=== PATIENT | male | born 1960 | race Caucasian/White ===

== ENCOUNTER 2019-12-05 07:00 | Outpatient (RCR) | payer OTHER, SELFPAY ==
--- NOTE | 2019-10-07 16:46 | PCCPR ---
Absent since 09/30 Called patient to check, left a voicemail.
--- NOTE | 2019-11-27 07:51 | PCCPR ---
Extended dc date Spoke with Jose he has been absent a few times for illness. He did want to extend his dc date until mid December.
--- NOTE | 2019-12-17 10:48 | PCCPR ---
Reregistered under new account number. See [id number] for documentation related to this visit.
== END 2019-12-05 23:59 | disposition home or self-care (01) ==
LOC: ANHCPREHAB 07:00
PROVIDERS: Visit Provider Nurse Practitioner Adult Health
DX: Z51.89 Encounter for other specified aftercare (principal); Z95.5 Presence of coronary angioplasty implant and graft; I25.2 Old myocardial infarction
CPT/HCPCS: 93798

== ENCOUNTER 2019-12-25 07:00 | Outpatient (RCR) | payer OTHER, SELFPAY | END 2019-12-25 08:42 | disposition home or self-care (01) | LOC: ANHCPREHAB 07:00 | PROVIDERS: Visit Provider Nurse Practitioner Adult Health | DX: Z51.89 Encounter for other specified aftercare (principal); Z95.5 Presence of coronary angioplasty implant and graft; I25.2 Old myocardial infarction | CPT/HCPCS: 93798 ==

== ENCOUNTER 2021-07-23 01:25 | Day surgery (SDC) | payer OTHER, SELFPAY ==
[2021-07-14 14:02] VITALS: BMI 31.1
--- NOTE | 2021-07-22 11:36 | PM.HPGS ---
History of Present Illness History of Present Illness Consent: Risks, benefits, and alternatives have been discussed and questions answered. Patient agrees to proceed with procedure. Chief complaint: hx of colon polyps Narrative: Jaren Lane is a 61 year old male here for colon cancer screening. He is at high risk due to previous polyps Review of Systems Review of Systems: All systems reviewed & are unremarkable except as noted in HPI and below PMFSH Past Medical History Medical History CAD (coronary artery disease) HTN (hypertension) Hyperlipidemia Obesity Surgical History Surgical History History of coronary artery stent placement Social History Social History Smoking status: Former smoker Tobacco type: cigarettes Alcohol intake: current Drinks per week: 2 Alcohol use details: BEERS Substance use: never Substance use type: does not use Living arrangements: with family Spiritual care concerns: No Meds Home Medications and Allergies Home Medications Medication Instructions Recorded Confirmed Type aspirin [Adult Low Dose Aspirin] 81 mg PO DAILY 09/16/19 07/14/21 History atorvastatin 80 mg PO DAILY 09/16/19 07/14/21 History dexmethylphenidate 10 mg PO DAILY 09/16/19 07/14/21 History escitalopram oxalate 40 mg PO DAILY 09/16/19 07/14/21 History lisinopril 2.5 mg PO DAILY 09/16/19 07/14/21 History metoprolol tartrate 12.5 mg PO BID 09/16/19 07/14/21 History vs-hu-VV-vit M-uopmd-rak-coQ10 1 cap PO DAILY 09/16/19 07/14/21 History [Daily Multivitamin] nitroglycerin [Nitrostat] 0.4 mg SUBLINGUAL Q5M PRN 09/16/19 07/14/21 History prasugrel [Effient] 10 mg PO DAILY 09/16/19 07/23/21 History cholecalciferol (vitamin D3) 50 mcg PO DAILY 07/14/21 07/14/21 History [Vitamin D3] ezetimibe 10 mg PO DAILY 07/14/21 07/14/21 History Allergies Allergy/AdvReac Type Severity Reaction Status Date / Time No Known Allergies Allergy Mild Verified 07/23/21 07:36 Exam Const: General: alert Orientation/consciousness: patient oriented x3 Resp: Auscultation: clear to auscultation bilaterally Cardio: Rhythm: regular rhythm GI: GI Palp: Yes Soft to palpation and No Tenderness to palpation present (GI) Neuro: General: patient oriented x3 Assessment and Plan Assessment and plan (1) Colon cancer screening: Code(s): Z12.11 - Encounter for screening for malignant neoplasm of colon Status: Acute Assessment and Plan: Colonoscopy with possible biopsy or polypectomy or cautery or injection of substances.
[2021-07-23 07:39] VITALS: BP 121/68; PULSE 58; RESP 18; TEMP 36.6; O2SAT 98; BMI 30.5
[2021-07-23] MEDS: LACTATED RINGERS 1,000 ML 150 ML IV CONT (07:46)
--- NOTE | 2021-07-23 07:52 | WPDANESEPPF ---
Anes - Initial Pre Proc Eval Procedure: Operation Date: 07/23/21 08:30 Proposed Procedures p Screening Colonoscopy - Negro Mayorga MD Date/Time: 07/23/21 07:52 Surgeon: Negro Mayorga MD Pre Op Diagnosis: hx of colon polyps Patient Data Age: 61 Gender: M Height: 1.7 m Weight: 88.5 kg Last Vital Signs Temp 36.6 C 07/23/21 07:39 Pulse 58 L 07/23/21 07:39 Resp 18 07/23/21 07:39 BP 121/68 07/23/21 07:39 Pulse Ox 98 07/23/21 07:39 Allergies Allergy/AdvReac Type Severity Reaction Status Date / Time No Known Allergies Allergy Mild Verified 07/23/21 07:36 Home Medications Medication Instructions Recorded Confirmed Type aspirin [Adult Low Dose Aspirin] 81 mg PO DAILY 09/16/19 07/14/21 History atorvastatin 80 mg PO DAILY 09/16/19 07/14/21 History dexmethylphenidate 10 mg PO DAILY 09/16/19 07/14/21 History escitalopram oxalate 40 mg PO DAILY 09/16/19 07/14/21 History lisinopril 2.5 mg PO DAILY 09/16/19 07/14/21 History metoprolol tartrate 12.5 mg PO BID 09/16/19 07/14/21 History wc-uf-KB-vit L-gjcnq-dfc-coQ10 1 cap PO DAILY 09/16/19 07/14/21 History [Daily Multivitamin] nitroglycerin [Nitrostat] 0.4 mg SUBLINGUAL Q5M PRN 09/16/19 07/14/21 History prasugrel [Effient] 10 mg PO DAILY 09/16/19 07/23/21 History cholecalciferol (vitamin D3) 50 mcg PO DAILY 07/14/21 07/14/21 History [Vitamin D3] ezetimibe 10 mg PO DAILY 07/14/21 07/14/21 History Patient hx anesthesia problems: none Family hx anesthesia problems: none PMFSH Past Medical History Medical History (Updated 07/23/21 @ 07:53 by Jules Perez MD) CAD (coronary artery disease) HTN (hypertension) Hyperlipidemia Obesity Surgical History Surgical History (Updated 07/23/21 @ 07:52 by Jules Perez MD) History of coronary artery stent placement Social History Social History Smoking status: Former smoker Tobacco type: cigarettes Alcohol intake: current Drinks per week: 2 Alcohol use details: BEERS Substance use: never Substance use type: does not use Living arrangements: with family Spiritual care concerns: No Anes - Eval Final PreProcedure Day of Procedure 07/23/21 07:52 Patient weight: obese Heart: regular rate and rhythm Lungs: clear to auscultation Airway: Mallampati scale class II Neurological: alert and oriented Last oral intake: >/= 8 hours ASA classification: III Emergent: no Anesthetic plan: proceed Anesthesia type and monitoring: general GIVS and standard monitoring Informed Consent: The patient's anesthetic plan and its attendant risks and benefits were discussed with the patient/family/POA. Questions were solicited and answers provided to the satisfaction of the patient/family/POA.
[2021-07-23 08:57] VITALS: BP 121/68; PULSE 54; RESP 18; O2SAT 98
[2021-07-23 09:07] VITALS: BP 133/80; PULSE 52; RESP 18; O2SAT 98
[2021-07-23 09:17] VITALS: BP 130/80; PULSE 52; RESP 18; O2SAT 98
== END 2021-07-23 09:27 | disposition home or self-care (01) ==
PROVIDERS: PCP Family Medicine; Visit Provider Internal Medicine Gastroenterology
PROC: 0DJD8ZZ Inspection of Lower Intestinal Tract, Via Natural or Artificial Opening Endoscopic (ICD-10-PCS; CPT 45378; principal; 2021-07-23 08:30)
DX: Z12.11 Encounter for screening for malignant neoplasm of colon (principal); D12.3 Benign neoplasm of transverse colon; K57.30 Diverticulosis of large intestine without perforation or abscess without bleeding; I25.10 Atherosclerotic heart disease of native coronary artery without angina pectoris; I10 Essential (primary) hypertension; E78.5 Hyperlipidemia, unspecified; E66.9 Obesity, unspecified; Z95.5 Presence of coronary angioplasty implant and graft
CPT/HCPCS: 45380; 88305; J2001; J2704; J7120

== ENCOUNTER 2025-01-28 01:15 | Day surgery (SDC) | payer MEDICARE, OTHER, SELFPAY ==
[2025-01-23 08:34] VITALS: BMI 33.1
--- OUTSIDE RECORDS SUMMARY | 2025-01-28 01:26 | XMS_ITS ---
Author Organization [facility] [employer] Address [address] [place] [address] Care Team Providers Care Duct Layer Helper Name Role Phone Salvador Oro Unavailable [phone] REASON FOR VISIT Lexapro Medications Medication SIG (Take, Route, Frequency, Duration) Notes Start Date End Date Status Escitalopram Oxalate 20 MG 2 tablet Oral once a day for 90 days Active Social History Sex Assigned At : Social History Observation Description Sex Assigned At Male Encounters Encounter Location Date Provider Diagnosis [facility] [employer] [facility] [address] [place] [address] 12/17/2024 Salvador Oro Major depressive disorder, recurrent severe without psychotic features F33.2 Assessments Encounter Date Diagnosis (ICD Code) Assessment Notes Treatment Notes Treatment Clinical Notes Section Notes 12/17/2024 Major depressive disorder, recurrent severe without psychotic features (ICD-10 - F33.2) Plan Of Treatment Medication Medication Name Sig Start Date Stop Date Notes Escitalopram Oxalate 20 MG 2 tablet Oral once a day for 90 days Next Appt Details Provider Name:Salvador Oro , 06/11/2025 04:00:00 PM, [address], [address], [place], [address], Progress Notes * ETHAN SELLERS EDOB: [birth year] (64 yo M)Acc No.[id number]:12/17/2024 Patient: ETHAN MATTHEWS :1960 A ge:64 Y S ex:Male Address:[address] [place], [place] [address] [place], [address] * Refills Refill Escitalopram Oxalate Tablet, 20 MG, Oral, 180 Tablet, 2 tablet, once a day, 90 days, Refills=0 * true * Date: Generated for Mike hernandez/Tunde/Meagan on: 0 01/28/2025 01:26 AM CDT
--- OUTSIDE RECORDS SUMMARY | 2025-01-28 01:26 | XMS_ITS | Clinical Summary ---
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 Gender Identity Not on file Sexual Orientation Not on file Plan of Treatment Health Maintenance Due Date Last Done Comments Pre-Diabetes and Diabetes Screening 1960 FIT-DNA Q 3 years 02/19/2004 FIT/FOBT Q 1 year 02/19/2004 Flex Sig/CT Colonography Q 5 years 02/19/2004 PNEUMOCOCCAL VACCINE 50+ YEA RS (1 of 1 - PCV) 2009 RSV VACCINE (60+ or ) (1 - Risk 60-74 years 1-dose series) 2019 INFLUENZA VACCINE (#1) 2024 , 08/22/2022, 09/21/2021, Additional history exists COVID-19 Vaccine ( - 2023-2 5 season) 2024 07/20/2022, 02/20/2022, 09/05/2021, Additional history exists DTAP/TDAP/TD VACCINES (2 - T d or Tdap) 04/25/2028 04/25/2018 COLORECTAL SCREENING 07/23/2031 07/23/2021 Colorectal Cancer Screening 07/23/2031 ZOSTER VACCINE Completed 10/16/2021, 05/14/2021
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
--- OUTSIDE RECORDS SUMMARY | 2025-01-28 01:27 | XMS_ITS | Clinical Summary ---
Author Organization [facility] Address [address] [place] [address] Care Team Providers Care Export Freight Specialist Name Role Phone Jenniffer Canales NP Primary Care Provider + Allergies No known active allergies Medications escitalopram (LEXAPRO) 20 mg tablet TK 2 TS PO QD 0 10/31/20 18 Active multivit-white shoe examiner als/ferrous fum (MULTI VITAMIN ORAL) Take by [...] with Plastic Surgery in 1 weeks at [facility], [address]- call [phone] to schedule Acute traumatic pain 03/12/2024 Assessment [...] daily H/O non-ST elevation myocardial infarction (NSTE MD) 03/23/2021 Coronary artery disease invo lving [place] coronary artery of [place] heart without angina pectoris 12/17/2019 HTN (hypertension), [...] 03/23/2021 09/27/2021 H/O heart artery stent 12/17/201912/26 Encounters Date Type Department Care Team Description 01/24/2025 Results Follow-Up [facility] Cardiology [address] [place] [address] [address] [place] [phone] Maame Dial MD 01/23/2025 8:15 AM CDT Ancillary Procedure [facility] Cardiology [address] [place] [address] [place] [phone] Coronary artery disease involving [place] coronary artery of [place] heart without angina pectoris 12/30/2024 10:15 AM [employer]APER AND PRESSER Office Visit [facility] Cardiology [address] [place] [address] [place] [phone] Maame Dial MD Coronary artery disease involving [place] coronary artery of [place] heart without angina pectoris (Primary Dx); HTN (hypertension), benign; Mixed hyperlipidemia; ALYSSA on CPAP 12/30/2024 Orders Only [facility] Cardiology [address] [place] [address] [place] [phone] ProviderOneyda MD 12/10/2024 8:45 AM [employer]APER AND PRESSER Office Visit [facility] Sleep Medicine at [address] [place] [phone] Juliana Lilly MD Obstructive sleep apnea (Primary Dx); Hypersomnia; Insomnia, unspecified type; Obesity, unspecified class, unspecified obesity type, unspecified whether serious comorbidity present from Last 3 Months Immunizations Immunization Administration Dates Next Due Influenza, Quadrivalent, Spl it, Preservative Free, Intramuscular 08/25/2019 Influenza, Trivalent, High D ose, Split, Preservative Free, Intramuscular 08/22/2022 Influenza, Trivalent, IM (MDV) 09/22/2023,2020 Pfizer SARS-CoV-2 Monovalent Vaccination (12+ Yrs) PURPLE 02/20/2022,09/05/2021,01/29/2021,01/08 Tdap 04/25/2018 ZOSTER Recombinant 10/16/2021,05/14/2021 Surgical History Surgery Date Site/Laterality Comments ANKLE FRACTURE SURGERY KNEE SURGERY Right KNEE ARTHROSCOPY CARDIAC CATHETERIZATION CORONARY ANGIOPLASTY FRACTURE SURGERY 1999, 2009? Medical History Medical History Date Comments Anxiety Hypercholesteremia Hypertension Seizures (HCC) Sleep apnea Coronary artery disease NSTEMI (non-ST elevated myocardial infarction) ( HCC) 07/29/2019 Depression Diverticulitis Hepatitis 1969 Heart disease 2019 Family History Medical History Relation Name Comments Heart disease Father Julio Sellers Depression Mother Love Sellers No Known Problems Sister Relation Name Status Comments Father Julio Sellers (Age 93) Mother Love Sellers (Age 91) Sister Alive Social History Tobacco Use Types Packs/Day Years [...] on file Legal Sex Male 1:12 PM [employer]ER AND PR[employer]ER Gender Identity Not on file Sexual Orientation Not on file Occupation Industry Job Start Date Job End Date working Not on file Not on file Not on file Obstetrics History Last Filed Vital Signs Vital Sign Reading Time Taken Comments Blood Pressure 104/64 12/30/2024 10:11 AM [employer]ER AND PR[employer]ER Pulse 69 12/30/2024 10:11 AM [employer]APER AND PRESSER Temperature 36.8 C (98.3 F) 06/17/2024 12:26 PM CDT Respiratory Rate 18 06/17/2024 12:26 PM CDT Oxygen Saturation 96% 12/30/2024 10:11 AM SHAPER AND PRESSER Inhaled Oxygen Concentration - - Weight 94.8 kg (209 lb) 12/30/2024 10:11 AM SHAPER AND PRESSER Height 170.2 cm (5' 7 ) 12/30/2024 10:11 AM SHAPER AND PRESSER Body Mass Index 32.73 12/30/2024 10:11 AM SHAPER AND PRESSER Plan of Treatment Health Maintenance Due Date Last Done Comments Colon Cancer Screening-Colonoscopy 1960 Depression Screening 1960 Hepatitis C Screening 1960 Prostate Cancer Screening-PSA 1959 Hepatitis B Screening 1977 Pneumococcal vaccine 65+ (1 of 1 - PCV) 2009 Well Visit 65+ 02/19/2024 Covid-19 Vaccine (5 - 2023-2 5 season) 2024 02/20/2022, 09/05/2021, 01/29/2021, Additional history exists Influenza Vaccine (#1) 2024 3, 08/22/2022, 09/21/2021, Additional history exists Fall Risk Assessment 03/13/2025 03/13/2024 DTaP/Tdap/Td Vaccine (2 - Td or Tdap) 04/25/2028 04/25/2018 Zoster Vaccine Completed 10/16/2021, 05/14/2021 Abdominal Aortic Aneurysm (A AA) Screen Completed 03/12/2024 Procedures Procedure Name Priority Date/Time Associated Diagnosis Comments NM MPI SPECT (REST AND/OR STRESS) MULTIPLE STUDIES Schedule Routine, Read Routine (OP Routine) 01/23/2025 9:41 AM CDT Coronary artery disease involving [place] coronary artery of [place] heart without angina pectoris CT ABDOMEN PELVIS W CONTRAST ED 03/12/2024 6:53 AM CDT from Last 3 Months or Most Recently Relevant to Health Maintenance Results * NM MPI SPECT (Rest and/or Stress) Multiple Studies (01/23/2025 9:41 AM CDT) Anatomical Region Laterality Modality Body N/A Nuclear Medicine 01/23/2025 6:44 AM CDT Narrative 01/23/2025 6:32 PM CDT [facility] [address] [facility] [address], [place] [address] [address] [facility] [address], [place] [address] P:[phone] P:[phone] MPI Imaging Report Patient Name: JAREN SELLERS E : 1960 Study Date: 01/23/2025 6:44:45 AM Gender: M [facility]: [facility] Location[facility] Provider: AMAME DIAL Height(Cm): 170.2 BSA: Weight(Kg): 94.8 BMI: [...] Smoker, and I25.10 Atherosclerotic heart disease of [place] coronary artery without angina pectoris. FINDINGS: Procedural [...] Procedure Note Maame Dial MD - 01/23/2025 [facility] [address] [facility] [address], [place] [address] [address] [facility] [address], [place] [address] P:[phone] P:[phone] MPI Imaging Report Patient Name: JAREN SELLERS E : 1960 Study Date: 01/23/2025 6:44:45 AM Gender: M Tech: [facility] Location: [facility] Provider: MAAME DIAL Height(Cm): 170.2 BSA: [...] Former Smoker, and I25.10Atherosclerotic heart disease of [place] coronary artery without angina pectoris. FINDINGS: Procedural [...] consolidation, pleural effusion, or pneumothorax within the kkfue-cj-eewy. The imaged heart is normal in size without pericardial effusion within the arhbf-gh-loze. Multivessel coronary calcifications are noted. There is [...] fifth ribs are incompletely included in the uzknb-lb-zcuq on this study. Procedure Note Cole Baker [...] consolidation, pleural effusion, or pneumothorax within the vpzzc-um-vony. The imaged heart is normal in size without pericardial effusion within the mrpoa-rr-obzc. Multivessel coronary calcifications are noted. There is [...] fifth ribs are incompletely included in the ttkrz-rx-uixl on this study. IMPRESSION: 1. Redemonstrated rib [...] by: Cole Baker M.D. Nain Jeong MD IMG CT PROCEDURES Final R esult from Last 3 Months or Most Recently Relevant to Health Maintenance Insurance [facility] [id number] MEDICARE [facility] Address: [address] [address] [place] [address] [facility] [id number] [facility] [id number] MEDICARE [facility] Address: [address] [address] [place] [address] Advance Directives For more information, please contact: [phone] * Full Code (Latest Code Status on File) Date Activated Date Inactivated Comments 03/12/2024 2:21 PM 03/13/2024 5:59 PM Care Teams Export Freight Specialist Relationship Specialty Start Date End Date Jenniffer Canales NP [address] [place] [address] PCP - General Cardiovascular Disease 12/10/24
--- OUTSIDE RECORDS SUMMARY | 2025-01-28 01:27 | XMS_ITS ---
Author Organization [facility] Address [address] [facility] [address] [place] [address] Care Team Providers Care Tax Technician Name Role Phone Salvador Serna Unavailable [phone] Results Component Value Reference Range Notes UDT Reviewed date:01/15/2025 11:03:57 AM Interpretation: Performing Lab: Notes/Report: THC N 0 - 50 ng/ml Cocaine N 0 - 300 ng/ml Amphetamine N 0 - 1000 ng/ml Buprenorphine (BUP) N 0 - 10 ng/ml Secobarbital (Bar) N 0 - 300 ng/ml Oxazepam (BZO) N 0 - 300 ng/ml 7-kgkjqlgtse-8,9-grfujeql-5,3-diphenylpyrrolidine (SHALINI P) N 0 - 300 ng/ml Methamphetamine (MET) N 0 - 1000 ng/ml Methylenedioxymethamphetamine (MDMA) N 0 - 500 ng/ml Morphine (MOP 300/[id number]) N 0 - 300 ng/ml Methadone (MTD) N 0 - 300 ng/ml Phencyclidine (PCP) N 0 - 25 ng/ml Nortriptyline (TCA) N 0 - 1000 ng/ml Oxycodone N 0 - 300 ng/ml x N 0 - 300 ng/ml REASON FOR VISIT follow-up, Depression screening negative, UDT Visit, UDT done Medications Medication SIG (Take, Route, Frequency, Duration) Notes Start Date End Date Status Escitalopram Oxalate 20 MG TAKE 2 TABLETS BY MOUTH DAILY for 90 Active Repatha SureClick 140 MG/ML Subcutaneous for 28 Days Active Atorvastatin Calcium 80 MG Oral for 90 Days Active Escitalopram Oxalate 20 MG 1.5 tablets Oral once a day for 90 days [ePrescription ] - [facility] #[id number] 25 Active Dexmethylphenidate HCl 10 MG TAKE 1 TABLET BY MOUTH EVERY MORNING AND 1 TABLET EVERY AFTERNOON PRN Oral see sign for 30 days 01/15/2025 Active Methocarbamol 500 MG Oral for 15 Days Not-Taking Social History Sex Assigned At : Social History Observation Description Sex Assigned At Male Vital Signs Blood pressure systolic 114 mm Hg 01/16/20 25 Blood pressure diastolic 73 mm Hg 025 Heart Rate 71 /min 01/15/2025 Height 67.99 in 01/15/2025 Weight 215 lbs 01/15/2025 BMI 32.7 kg/m2 01/15/2025 Height-cm 172.69 cm 01/15/2025 Weight-kg 97.52 kg 01/15/2025 Encounters Encounter Location Date Provider Diagnosis [facility] [address] [address] 01/15/2025 Salvador Serna Attention-deficit hyperactivity disorder, unspecified type F90.9 ; Major depressive disorder, recurrent severe without psychotic features F33.2 ; Generalized anxiety disorder F41.1 and Obsessive-compulsive disorder, unspecified F42.9 Assessments Encounter Date Diagnosis (ICD Code) Assessment Notes Treatment Notes Treatment Clinical Notes Section Notes 01/15/2025 Attention-defici t hyperactivity disorder, unspecified type (ICD-10 - F90.9) Electronic Prior Authorization was requested for Dexmethylphenidate HCl 10 MG Tablet. Provider can order medication once approval received. 01/15/2025 Major depressive disorder, recurrent severe without psychotic features (ICD-10 - F33.2) 01/15/2025 Generalized anxiety disorder (ICD-10 - F41.1) 01/15/2025 Obsessive-compul sive disorder, unspecified (ICD-10 - F42.9) 01/15/2025 Other Anxiety and Obsessive-Compu lsive Disorder (OCD) - Assessment: Patient reported increased rumination and difficulty getting out of bed after reducing Lexapro to 20 mg. Patient has since increased the dose back to 40 mg, which seems to be more effective in managing symptoms. Patient expressed uncertainty about the optimal dosage but feels stable at 40 mg. - Plan: - Continue Lexapro 40 mg daily. - Monitor for any changes in anxiety or OCD symptoms and adjust the medication as needed. Attention Deficit Hyperactivity Disorder (ADHD) - Assessment: Patient reports stable ADHD symptoms and is currently on Focalin. - Plan: - Continue Focalin as prescribed. - Monitor for any changes in ADHD symptoms and adjust the medication as needed. Writing Project-Related Anxiety - Assessment: Patient is working with a therapist to address anxiety related to a writing project and procrastination . Patient experiences difficulty starting writing tasks but usually completes them by the deadline. - Plan: - Encourage patient to continue therapy sessions and implement coping strategies discussed with the therapist. Prescription Refills and Follow-up - Assessment: Patient has a 90-day supply of Lexapro and a recent refill of Focalin. Patient inquired about the procedure and fees for Focalin prescription refills. - Plan: - Send a prescription for Focalin today. - Schedule a follow-up appointment in 5 months to assess patient's progress and medication needs. - Instruct patient to contact the clinic for a refill if they run out of medication before the next appointment. General Health and Well-being - Assessment: Patient discussed the impact of the ongoing winter season on their mood. - Plan: - Encourage patient to engage in self-care activities and maintain a healthy lifestyle to support overall well-being. Plan Of Treatment Medication Medication Name Sig Start Date Stop Date Notes Escitalopram Oxalate 20 MG 1.5 tablets O ral once a day for 90 days [ePrescription] - [facility] #[id number]/ Dexmethylphenidate HCl 10 MG TAKE 1 TABL ET BY MOUTH EVERY MORNING AND 1 TABLET EVERY AFTERNOON PRN Oral see sign for 30 days 01/15/2025 Treatment Notes Assessment Notes Attention-deficit hyperactiv ity disorder, unspecified type Electronic Prior Authorization was reque sted for Dexmethylphenidate HCl 10 MG Tablet. Provider can order medication once approval received. Next Appt Details Follow Up: 5 month, Reason: Provider Name:Salvador Serna , 06/11/2025 04:00:00 PM, [address], [address], [place], [address], Progress Notes * ETHAN SELLERS EDOB: [birth year] (64 yo M)Acc No.[id number]:01/15/2025 Patient: ETHAN MATTHEWS Provider: Jony SERNA MD :1960 A ge:64 Y S ex:Male Date:01/15/2025 Address:[address] [place], [place] [id number] Subjective: * Chief Complaints: * F ollow-upDepression screening negativeUDT VisitUDT done * HPI: D epression Screening: The note is transcribed using speech recognition software. It is a reflection of a visit with the patient. It might have some inaccuracy, including medication names and transcribing errors, though efforts have been made to correct them. Chief Complaint: Medication management for anxiety, OCD, and ADHD Patient Background: The patient has a history of anxiety, OCD (Obsessive-Compulsive Disorder), and ADD/ADHD (Attention Deficit Disorder/Attention Deficit Hyperactivity Disorder). He is currently engaged in a writing project with a deadline in February. Medication History: The patient was previously on 40mg of Lexapro, which he had reduced to 20mg. This reduction led to a recurrence of symptoms, including rumination and difficulty getting out of bed. He has since increased the dosage back to 40mg, resulting in improved symptom management. The patient is also prescribed Focalin for ADHD management, though the dosage is not specified. Current Symptoms: The patient reports feeling more stable on the higher dose of Lexapro. He no longer experiences severe anxieties as before. However, he still struggles with initiating writing tasks for his current project, often procrastinating until deadlines approach. The patient also mentioned experiencing stress due to political factors. ADHD Management: The patient states his ADHD is relatively stable. He inquired about the process for renewing his Focalin prescription and sought clarification on associated fees. Therapy: The patient reports having a therapist who is helping him develop strategies to address his procrastination behavior. Review of Systems (Psychiatric): - Mood: More stable on higher dose of Lexapro - Thoughts: Experiences rumination when medication dose is lowered - Energy: Reports difficulty getting out of bed when medication dose is lowered - Concentration: Struggles with initiating writing tasks, tendency to procrastinate Social History: The patient is currently working on a writing project with a deadline in February. Current Medications: - Lexapro 40mg - Focalin (dosage not specified) Additional Details: - The patient experienced a recurrence of symptoms when Lexapro dosage was reduced - He reports feeling more stable on the higher dose of Lexapro - The patient mentions stress related to political factors - He has inquired about the process for renewing his Focalin prescription. MELINDA-7 (2018 Edition) F eeling nervous, anxious, or on edge S ever N ot being able to stop or control worrying?Not at all W orrying too much about different things S ever T rouble relaxing S ever B eing so restless that it is hard to sit still N ot at all B ecoming easily annoyed or irritable N ot at all F eeling afraid as if something awful might happen N ot at all T otal MELINDA-7 Score 3 I f you checked any problems, how difficult have they made it for you to do your work, take care of things at home, or get along with other people? S omewhat difficult I nterpretation of Total ( 0 to 4) No Anxiety D epression screening: PHQ-9 L ittle interest or pleasure in doing things?Not at all F eeling down, depressed, or hopeless N ot at all T rouble falling or staying asleep, or sleeping too much S ever F eeling tired or having little energy N ot at all P oor appetite or overeating N ot at all F eeling bad about yourself or that you are a failure, or have let yourself or your family down N ot at all T rouble concentrating on things, such as reading the newspaper or watching television N ot at all M oving or speaking so slowly that other people could have noticed; or the opposite, being so fidgety or restless that you have been moving around a lot more than usual N ot at all T houghts that you would be better off or of hurting yourself in some way N ot at all T otal Score 1 I nterpretation M inimal Depression Intervention D epression Screening Findings N egative S uicide Risk Assessment Performed 0 01/15/2025 H istory of Presenting Problem: Pt was seen today and Urine drug screen was done. * ROS: P erformance Met: N ormal blood pressure reading documented, follow-up not required ( G8783). * Medical History: * Surgical History: * Hospitalization/Major Diagno stic Procedure: * Social History: M igrated Social History: M igrated Social History: Alcohol Intake: Occasional 10/18/2018,Tobacco Years: Former smoker 07/29/2022,Smoking Status: 0 01/01/2024. * Medications: T akingAtorvastatin Calcium 80 MG Tablet Oral Repatha SureClick 140 MG/ML Solution Auto-injector Subcutaneous Escitalopram Oxalate 20 MG Tablet TAKE 2 TABLETS BY MOUTH DAILY Dexmethylphenidate HCl 10 MG Tablet TAKE 1 TABLET BY MOUTH EVERY MORNING AND 1 TABLET EVERY AFTERNOON PRN Oral see sign , stop date 02/05/2025Taking Atorvastatin Calcium 80 MG Tablet Oral Taking Repatha SureClick 140 MG/ML Solution Auto- injector Subcutaneous Taking Escitalopram Oxalate 20 MG Tablet TAKE 2 TABLETS BY MOUTH DAILY Taking Dexmethylphenidate HCl 10 MG Tablet TAKE 1 TABLET BY MOUTH EVERY MORNING AND 1 TABLET EVERY AFTERNOON PRN Oral see sign , stop date 02/05/2025Not-TakingMethocarbamol 500 MG Tablet Oral Medication List reviewed and reconciled with the patientNot-Taking Methocarbamol 500 MG Tablet Oral Medication List reviewed and reconciled with the patient Objective: * Vitals: B P:114/73mm Hg, HR:71/min, Wt:215lbs, Wt-k.52 kg, Ht: 67.99 in, Ht-cm: 172.69 cm, BMI:32.7Index, Body Surface Area: 2.16. * Examination: G eneral Examination: M ental Status Examination: Patient reported difficulty with rumination and initiating tasks, specifically getting out of bed and starting writing projects, with a deadline in February contributing to anxiety. Described feeling unstable when Lexapro dose was reduced to 20 mg, but currently feels more stable on a 40 mg dose. ADD/ADHD symptoms are stable and managed with Focalin. Vital Signs: review the notes for vitals Physical Examination: not performed during this visit Diagnostic Test Results and Labs: no recent diagnostic tests or labs reported. Assessment: * Assessment: 1. M ajor depressive disorder, recurrent severe without psychotic features - F33.2 (Primary)? 2. A ttention-deficit hyperactivity disorder, unspecified type - F90.9 3 . G eneralized anxiety disorder - F41.1 4 . O bsessive-compulsive disorder, unspecified - F42.9 Plan: * Treatment: 2. A ttention-deficit hyperactivity disorder, unspecified type Refill Dexmethylphenidate HCl Tablet, 10 MG, TAKE 1 TABLET BY MOUTH EVERY MORNING AND 1 TABLET EVERY AFTERNOON PRN, Oral, see sign, 30 days, 45, Refills 0. Notes: Electronic Prior Authorization was requested for Dexmethylphenidate HCl 10 MG Tablet. Provider can order medication once approval received. 3. O thers Clinical Notes: Anxiety and Obsessive-Compulsive Disorder (OCD) - Assessment: Patient reported increased rumination and difficulty getting out of bed after reducing Lexapro to 20 mg. Patient has since increased the dose back to 40 mg, which seems to be more effective in managing symptoms. Patient expressed uncertainty about the optimal dosage but feels stable at 40 mg. - Plan: - Continue Lexapro 40 mg daily. - Monitor for any changes in anxiety or OCD symptoms and adjust the medication as needed. Attention Deficit Hyperactivity Disorder (ADHD) - Assessment: Patient reports stable ADHD symptoms and is currently on Focalin. - Plan: - Continue Focalin as prescribed. - Monitor for any changes in ADHD symptoms and adjust the medication as needed. Writing Project-Related Anxiety - Assessment: Patient is working with a therapist to address anxiety related to a writing project and procrastination. Patient experiences difficulty starting writing tasks but usually completes them by the deadline. - Plan: - Encourage patient to continue therapy sessions and implement coping strategies discussed with the therapist. Prescription Refills and Follow-up - Assessment: Patient has a 90-day supply of Lexapro and a recent refill of Focalin. Patient inquired about the procedure and fees for Focalin prescription refills. - Plan: - Send a prescription for Focalin today. - Schedule a follow-up appointment in 5 months to assess patient's progress and medication needs. - Instruct patient to contact the clinic for a refill if they run out of medication before the next appointment. General Health and Well-being - Assessment: Patient discussed the impact of the ongoing winter season on their mood. - Plan: - Encourage patient to engage in self-care activities and maintain a healthy lifestyle to support overall well-being. * Labs: * L ab: OSCAR (Collection Date & Time - 01/15/2025) Value Reference Range T HC N 0 - 50 ng/ml * C ocaine N 0 - 300 ng/ml * A mphetamine N 0 - 1000 ng/ml * B uprenorphine (BUP) N 0 - 10 ng/ml * S ecobarbital (Bar) N 0 - 300 ng/ml * O xazepam (BZO) N 0 - 300 ng/ml * 2 -ethylidene-1,5-oinbxpwx-4,3-diphenylpyrrolidine (EDDP) N 0 - 300 ng/ml * M ethamphetamine (MET) N 0 - 1000 ng/ml * M ethylenedioxymethamphetamine (MDMA) N 0 - 500 ng/ml * M orphine (MOP 300/[id number]) N 0 - 300 ng/ml * M ethadone (MTD) N 0 - 300 ng/ml * P hencyclidine (PCP) N 0 - 25 ng/ml * N ortriptyline (TCA) N 0 - 1000 ng/ml * O xycodone N 0 - 300 ng/ml * x N 0 - 300 ng/ml * Procedure Codes: 9 6127 BEHAV ASSMT W/SCORE & DOCD/STAND [id number] NORMAL BP READING DOC F/U NOT [id number] DRUG TST PRSMV READ INSTRMNT ASSTD DIR OPT [id number] MOST RECENT SYSTOLIC BP < 140MM [id number] MOST RECENT DIASTOLIC BP < 90MM HG * Follow Up: 5 month * Billing Information: * Visit Code: 35041 OFFICE OUTPATIENT VISIT 25 MINUTES DETAILED HISTORY AND EXAM/MODERATE MEDICAL DECISION MAKING. * Procedure Codes: 78684 BEHAV ASSMT W/SCORE & DOCD/STAND INSTRUMENT. G8783 NORMAL BP READING DOC F/U NOT RQR. 06841 DRUG TST PRSMV READ INSTRMNT ASSTD DIR OPT OBS. G8752 MOST RECENT SYSTOLIC BP < 140MM HG. G8754 MOST RECENT DIASTOLIC BP < 90MM HG. * E THERAPIST Sign off status: Completed true * Provider: Jony SERNA MD Date: 0 01/15/2025 Generated for Printi ng/Faxing/eTransmitting on: 0 01/28/2025 01:26 AM CDT History and Physical Notes * HPI (History of Present Illness) Category Sub-Category Detail Notes Category Not es History of Presenting Problem Pt was seen today and Urine drug screen was done Depression screening PHQ-9 Little inte rest or pleasure in doing things: Not at all Feeling down, depressed, or hopeless: No t at all Trouble falling or staying asleep, or sl eeping too much: Several days Feeling tired or having little energy: N ot at all Poor appetite or overeating: Not at all Feeling bad about yourself o r that you are a failure, or have let yourself or your family down: Not at all Trouble concentrating on thi ngs, such as reading the newspaper or watching television: Not at all Moving or speaking so slowly that other people could have noticed; or the opposite, being so fidgety or restless that you have been moving around a lot more than usual: Not at all Thoughts that you would be b joseph off or of hurting yourself in some way: Not at all Total Score: 1 Interpretation: Minimal Depression Intervention Depression Screening Findings: N egative Suicide Risk Assessment Performed: 01/15 Depression Screening MELINDA-7 (2018 Edition) Feelin g nervous, anxious, or on edge: Several days Not being able to stop or control worryi ng: Not at all Worrying too much about different things : Several days Trouble relaxing: Several days Being so restless that it is hard to sit still: Not at all Becoming easily annoyed or irritable: No t at all Feeling afraid as if something awful janusz ht happen: Not at all Total MELINDA-7 Score: 3 If you checked any problems, how difficult have they made it for you to do your work, take care of things at home, or get along with other people?: Somewhat difficult Interpretation of Total: (0 to 4) No Anx iety Examination Category Sub-Category Detail Notes Category Not es General Examination Mental Status Examination: Patient reported difficulty with rumination and initiating tasks, specifically getting out of bed and starting writing projects, with a deadline in February contributing to anxiety. Described feeling unstable when Lexapro dose was reduced to 20 mg, but currently feels more stable on a 40 mg dose. ADD/ADHD symptoms are stable and managed with Focalin. Vital Signs: review the notes for vitals Physical Examination: not performed during this visit Diagnostic Test Results and Labs: no recent diagnostic tests or labs reported
--- OUTSIDE RECORDS SUMMARY | 2025-01-28 01:27 | XMS_ITS | Encounter Summary ---
Author Organization [facility] Address [address] [place] [address] Care Team Providers Care Dog Beautician Name Role Phone Jenniffer Canales NP Primary Care Provider + Encounter Details Date Type Department Care Team (Late st Contact Info) Description 01/24/2025 Results Follow-Up [facility] Cardiology [address] [place] [address] Kimani Mesa MD [address] [id number] Social History Tobacco Use Types Packs/Day Years Used Date Smoking Tobacco: Former Cigarettes 0.5 3.9 0 11/13/1980 - 10/14/1984 Smokeless Tobacco: Never Comments:Long time ago Alcohol Use Standard Drinks/Week [...] on file Legal Sex Male 1:12 PM [employer] Gender Identity Not on file Sexual Orientation Not on file Occupation Industry Job Start Date Job End Date working Not on file Not on file Not on file documented as of this encounter Plan of Treatment Not on file documented as of this encounter Visit Diagnoses Not on filedocumented in this encounter Care Teams Dog Beautician Relationship Specialty Start Date End Date Jenniffer Canales NP [address] [place] [address] PCP - General Cardiovascular Disease 12/10/24 documented as of this encounter
--- OUTSIDE RECORDS SUMMARY | 2025-01-28 01:27 | XMS_ITS | Patient Health Summary ---
Author Organization [facility] Address [address] [place] [address] Care Team Providers Care Master Technician Name Role Phone Estefany Fisher MD Primary Care Provider [phone] Note from [facility],non-owned Affiliates and Associated Physician Practices is amultiple site organization consisting of ambulatory clinics and hospital sitesin [place], [place], [place] and [place]. This disclosure is being madepursuant to the Care Everywhere program and may not contain all information available regarding this patient. Last updated 18.[facility] Allergies No known active allergies Medications * Be aware that medications may not be up to date on this document. Alwaysverify current medications with the patient. * escitalopram (LEXAPRO) 5 MG/5ML oral solution Take 5 mg by mouth once daily * Dexmethylphenidate HCl (FOCALIN PO) * Nutritional Supplements (COLD AND FLU PO) * Cetirizine HCl (ALL DAY ALLERGY PO) * Arqgybadg-Ougkebgvb-HS-APAP (WAL-FLU SEV COLD/CGH DAY/NIGHT PO) * atorvastatin (LIPITOR) 10 MG tablet Take 10 mg by mouth at bedtime * amLODIPine (NORVASC) 5 MG tablet Take 5 mg by mouth once daily * benzonatate (TESSALON) 200 MG capsule(Started 03/11/2019) Take 1 capsule by mouth 3 times daily as needed for Cough Immunizations * INFLUENZA VACCINE, QUADR. (FLUZONE; FLULAVAL; FLUARIX; AFLURIA QUADRIVALENT; 6MO+), 0.5 ML (IIV4)(Given 08/25/2019) Social History Tobacco Use Types Packs/Day Years Used Date Smoking Tobacco: Former Smokeless Tobacco: Never Comments:quit in 1983 Sex and Gender Information Value Date Recorded Sex Assigned at Not on file Gender Identity Not on file Sexual Orientation Not on file Last Filed Vital Signs Vital Sign Reading Time Taken Comments Blood Pressure 146/90 03/11/2019 2:32 PM CDT Pulse 93 03/11/2019 2:32 PM CDT Temperature 36.7 C (98.1 F) 03/11/2019 2:32 PM CDT Respiratory Rate 16 03/11/2019 2:32 PM CDT Oxygen Saturation 96% 03/11/2019 2:32 PM CDT Inhaled Oxygen Concentration - - Weight 94.3 kg (208 lb) 03/11/2019 2:32 PM CDT Height 170.2 cm (5' 7 ) 03/11/2019 2:32 PM CDT Body Mass Index 32.58 03/11/2019 2:32 PM CDT Procedures * INFLUENZA A+B - POINT OF CARE (AMB)(Performed 03/11/2019) Performed for Upper respiratory tract infection, unspecified type Results * INFLUENZA A+B - POINT OF CARE (AMB) (03/11/2019 2:44 PM CDT) Influenza A Antigen Rapid Negative Negative Influenza B Antigen Rapid Negative Negative Influenza Internal Control present NEGATIVE - POSITIVE Influenza Lot Number [id number] Influenza Expiration Date 09 24 2020 Other NASOPHARYNGEAL SWAB / Unknown 03/11/2019 2:44 PM CDT Jay Stoner APRN-LOAN OFFICER ASSISTANT LAB - POINT OF CA RE ORDERABLES Care Teams Master Technician Relationship Specialty Start Date End Date Estefany Fisher MD PCP - General 07/30/21
--- OUTSIDE RECORDS SUMMARY | 2025-01-28 01:27 | XMS_ITS ---
Author Organization [facility] [employer] Address [facility] [address] [facility] [address] [place] [address] Care Team Providers Care Fence Manufacture Supervisor Name Role Phone PreethiRusty mtzjay Unavailable [phone] REASON FOR VISIT Refill Medications Medication SIG (Take, Route, Frequency, Duration) Notes Start Date End Date Status Dexmethylphenidate HCl 10 MG TAKE 1 TABL ET BY MOUTH EVERY MORNING AND 1 TABLET EVERY AFTERNOON PRN Oral see sign for 30 days 01/06/2025 02/05/2025 Active Social History Sex Assigned At : Social History Observation Description Sex Assigned At Male Encounters Encounter Location Date Provider Diagnosis [facility] [employer] [place] [id number] [facility] [address] [address] 01/06/2025 Salvador Oro Attention-deficit hyperactivity disorder, unspecified type F90.9 Assessments Encounter Date Diagnosis (ICD Code) Assessment Notes Treatment Notes Treatment Clinical Notes Section Notes 01/06/2025 Attention-deficit hyperactivity disorder, unspecified type (ICD-10 - F90.9) Plan Of Treatment Medication Medication Name Sig Start Date Stop Date Notes Dexmethylphenidate HCl 10 MG TAKE 1 TABL ET BY MOUTH EVERY MORNING AND 1 TABLET EVERY AFTERNOON PRN Oral see sign for 30 days 01/06/2025 02/05/2025 Next Appt Details Provider Name:Salvador Oro , 06/11/2025 04:00:00 PM, [address], [address], [place], [address], Progress Notes * ETHAN SELLERS EDOB: [birth year] (64 yo M)Acc No.[id number]:01/06/2025 Patient: ETHAN MATTHEWS :1960 A ge:64 Y S ex:Male Address:[address] [place] [address] [place], [address] * Refills Refill Dexmethylphenidate HCl Tablet, 10 MG, Oral, 45, TAKE 1 TABLET BY MOUTH EVERY MORNING AND 1 TABLET EVERY AFTERNOON PRN, see sign, 30 days, Refills=0 * true * Date: Generated for Mike hernandez/Tunde/Westsmitting on: 0 01/28/2025 01:27 AM CDT
--- OUTSIDE RECORDS SUMMARY | 2025-01-28 01:27 | XMS_ITS | Clinical Summary ---
Author Organization [facility] [employer] Address [address] [place] [address] Care Team Providers Care Student Dean Name Role Phone Estefany Fisher MD Primary Care Provider [phone] Source Comments [facility] [employer],non-owned Affiliates and Associated Physician Practices is amultiple site organization consisting of ambulatory clinics and hospital sitesin [place], [place], [place] and [place]. This disclosure is being madepursuant to the Care Everywhere program and may not contain all information available regarding this patient. Last updated 18.[facility] [employer] Allergies No known active allergies Medications * Be aware that medications may not be up to date on this document. Alwaysverify current medications with the patient. Medication Sig Dispensed Refills Start Date End Date Status escitalopram (LEXAPRO) 5 MG/5ML oral solution Take 5 mg by mouth once daily Active Dexmethylphenidate HCl (FOCALIN PO) Active Nutritional Supplements (COLD AND FLU PO) Active Cetirizine HCl (ALL DAY ALLERGY PO) Active Aqwqjifps-Unbbjzomv-E M-APAP (WAL-FLU SEV COLD/CGH DAY/NIGHT PO) Active atorvastatin (LIPITOR) 10 MG tablet Take 10 mg by mouth at bedtime Active amLODIPine (NORVASC) 5 MG tablet Take 5 mg by mouth once daily Active benzonatate (TESSALON) 200 MG capsule Take 1 capsule by mouth 3 times daily as needed for Cough 30 capsule 03/11/2019 Active Immunizations Name Administration Dates Next Due INFLUENZA VACCINE, QUADR. (F LUZONE; FLULAVAL; FLUARIX; AFLURIA QUADRIVALENT; 6MO+), 0.5 ML (IIV4) 08/25/2019 Family History Medical History Relation Name Comments Other Father Hypoglycemia Relation Name Status Comments Father Social History Tobacco Use Types Packs/Day Years [...] Mass Index 32.58 03/11/2019 2:32 PM CDT Plan of Treatment Health Maintenance Due Date Last Done Comments COLOGUARD (AGES 45-75) - COL ON CA SCREENING 1959 COLON MONITORING 1959 COLONOSCOPY - COLON CA SCREENING 1959 CT COLONOGRAPHY - COLON CA SCREENING 1959 Colorectal Cancer Screening 1959 FIT - COLON CA SCREENING 1959 FLEX SIG - COLON CA SCREENING 1959 HIV SCREENING 1974 HEPATITIS C SCREENING 02/13/1977 DTAP/TDAP/TD VACCINES (1 - Tdap) 1978 PNEUMOCOCCAL VACCINE 50+ (1 of 1 - PCV) 2009 ZOSTER VACCINE (1 of 2) 2009 SCREENING FOR DIABETES 03/11/2019 AAA SCREENING 02/19/2024 COVID-19 VACCINE (1 - 2023-2 5 season) 2024 INFLUENZA VACCINE (#1) 2024 08/25/2019 DEPRESSION SCREENING 11/13/2024 Respiratory Syncytial Virus (RSV) Vaccine Pt: or over 60 yrs (1 - 1-dose 75+ series) 2034 HEPATITIS B VACCINE Aged Out No longe r eligible based on patient's age to complete this topic HIB VACCINE Aged Out No longer eligi ble based on patient's age to complete this topic HPV VACCINE Aged Out No longer eligi ble based on patient's age to complete this topic MENINGOCOCCAL (Group B) VACC INE SHARED DECISION-MAKING Aged Out No longer eligibl e based on patient's age to complete this topic MENINGOCOCCAL GROUPS A/C/Y/W VACCINE Aged Out No longer eligible b ased on patient's age to complete this topic Care Teams Student Dean Relationship Specialty Start Date End Date Estefany Fisher MD PCP - General 07/30/21
--- OUTSIDE RECORDS SUMMARY | 2025-01-28 01:27 | XMS_ITS | Referral Summary ---
Author Organization [facility] Address [address] [place] [address] Care Team Providers Care Tip Stitcher Name Role Phone Estefany Fisher MD Primary Care Provider [phone] Source Comments [facility],non-owned Affiliates and Associated Physician Practices is amultiple site organization consisting of ambulatory clinics and hospital sitesin [place], [place], [place] and [place]. This disclosure is being madepursuant to the Care Everywhere program and may not contain all information available regarding this patient. Last updated 18.[facility] Allergies No known active allergies Medications * [...] Cetirizine HCl (ALL DAY ALLERGY PO) Active Ejagkbnts-Enytfrclf-L M-APAP (WAL-FLU SEV COLD/CGH DAY/NIGHT PO) Active [...] AFLURIA QUADRIVALENT; 6MO+), 0.5 ML (IIV4) 08/25/2019 Social History Tobacco Use Types Packs/Day Years [...] 03/11/2019 2:32 PM CDT Plan of Treatment Not on file Care Teams Tip Stitcher Relationship Specialty Start Date End Date Estefany Fisher MD PCP - General 07/30/21
--- OUTSIDE RECORDS SUMMARY | 2025-01-28 01:27 | XMS_ITS | Clinical Summary ---
Author Organization [facility] Address [address] [place] [address] Phone Care Team Providers Care Log Rafter Name Role Phone Unavailable Primary Care Provider Unavailabl e Allergies Active Allergy Reactions Criticality Noted Date Comments Viloxazine Other (see Comments) Low 09/02/2022 Unable to sleep Medications escitalopram (LEXAPRO) 20 MG Tablet Take 2 Tabs by mouth daily. 0 07/24/2018 Active Dexmethylphenid ate HCl 10 MG Tablet Take 1 Tab by mouth 2 times daily. 0 08/28/2018 Active metoprolol tartrate (LOPRESSOR) 25 MG Tablet TK 1/2 T PO Q 12 H 3 07/31/2019 Active lisinopril (PRINIVIL, ZESTRIL) 5 MG Tablet TK 1 T PO QAM 3 07/31/2019 Active aspirin EC 81 MG Tablet Delayed Response Take 81 mg by mouth daily. Active nitroGLYCERIN (NITROSTAT) 0.4 MG SL Tablet 07/31/2019 Active atorvastatin (LIPITOR) 80 MG Tablet 12/11/2019 Active Multiple Vitamins-Minera ls (MULTIVITAMIN PO) Take by mouth. Active Praluent 75 MG/ML Solution Auto-injector INJECT 75MG UNDER THE SKIN EVERY 14 DAYS 09/21/2022 Active ezetimibe (ZETIA) 10 MG Tablet TAKE 1 TABLET(10 MG) BY MOUTH DAILY 06/22/2022 Active Efinaconazole (Jublia) 10 % Solution Use on toenail once daily for 12 weeks 10 mL 1 04/18/2023 Active Active Problems Problem Noted Date Diagnosed Date Coronary artery disease invo lving [place] coronary artery of [place] heart without angina pectoris 12/17/2019 H/O heart artery stent 12/17/2019 Hypertension, essential 01/29/2019 Non morbid obesity 01/14/2019 Restless legs syndrome (RLS) 01/14/2019 Pulmonary HTN 01/14/2019 Recurrent major depressive disorder, in full rem ission 09/11/2018 Post-traumatic osteoarthritis of right knee 08/15 Dermatitis 09/11/2018 Obstructive sleep apnea syndrome 09/11/2018 Elevated blood pressure reading 09/11/2018 History of colonic diverticulitis 09/11/2018 Immunizations Immunization Administration Dates Next Due Covid-19, Mrna, Lnp-s, Bival ent, Moderna, 50 Mcg or 25 mcg dose 07/20/2022 Covid-19, Mrna, Lnp-s, Pf, 3 0 Mcg/0.3 Ml Dose (Ludi) 02/20/2022,09/05/2021,01/29/2021,2020 Influenza Vaccine greater than 3 yrs 09/22/2023, 09/21/2021 Influenza Vaccine, Quadrivalent, PF 08/25/2019 Influenza, Seasonal, Injecta ble, Undefined 09/21/2021 Influenza, high-dose, trivalent, PF 08/22/2022 TDAP Vaccine 04/25/2018 Zoster Vaccine Recombinant 10/16/2021,05/14/2021 Family History Medical History Relation Name Comments Gout Father Depression Mother Relation Name Status Comments Father Mother Sister Alive Social History Tobacco Use Types Packs/Day Years Used Date Smoking Tobacco: Former Cigarettes Smokeless Tobacco: Never Tobacco Cessation:Counseling Given: No Alcohol Use Standard Drinks/Week Comments Yes 0 (1 standard drink = 0.6 oz pur e alcohol) socially PHQ-2 Answer Date Recorded Total Score - Questions 1-9 0 04/2020 Education Answer Date Recorded What is the highest level of school you have completed or the highest degree you have received? Doctorate 06/18/2020 Sex and Gender Information Value Date Recorded Sex Assigned at Not on file Legal Sex Male 9:45 AM CDT Gender Identity Not on file Sexual Orientation Not on file Last Filed Vital Signs Vital Sign Reading Time Taken Comments Blood Pressure 124/76 03/27/2023 8:25 AM CDT Pulse 61 03/27/2023 8:25 AM CDT Temperature 36.6 C (97.9 F) 03/27/2023 8:25 AM CDT Respiratory Rate 18 03/27/2023 8:25 AM CDT Oxygen Saturation 97% 03/27/2023 8:25 AM CDT Inhaled Oxygen Concentration - - Weight 101.7 kg (224 lb 4.8 oz) 03/27/2023 8:25 AM CDT Height 170.2 cm (5' 7 ) 03/27/2023 8:25 AM CDT Body Mass Index 35.13 03/27/2023 8:25 AM CDT Plan of Treatment Health Maintenance Due Date Last Done Comments Hepatitis C Virus (HCV) Screening 1959 Cologuard 2009 Immunochemical Fecal Occult Blood 2009 Pneumococcal Immunization (50+ years) (1 of 1 - PCV) 2009 Respiratory Syncytial Virus (RSV) Immunization (Adult) (1 - Risk 60-74 years 1-dose series) 2019 Influenza Immunization (#1) 07/14/202409/13, 08/22/2022, 09/21/2021, Additional history exists SARS-COV-2 Immunization ( season) 2024 07/20/2022, 02/20/2022, 02/20/2022, Additional history exists Td Immunization Every 10 Years (Adults With 1 Tdap) 04/25/2028 04/25/2018 Colonoscopy 07/23/2031 07/23/2021, 07/23/2021 Colorectal Cancer Screening 07/23/2031 07/23/2021, 07/23/2021 Zoster Immunization Completed 10/16/2021, PSA Discussion Completed 09/26/2022, 09/25/2018 Hepatitis B Immunization Aged Out No longer eligible based on patient's age to complete this topic Meningococcal Immunization (ACWY) Aged Out No longer eligible based on patient's age to complete this topic Rotavirus Immunization Aged Out No lo nger eligible based on patient's age to complete this topic Procedures Procedure Name Priority Date/Time Associated Diagnosis Comments PSA DIAGNOSTIC,TOTAL Routine 09/26/2022 9:36 AM [employer]BI[employer] INST[employer]ER Hypertension, essential HM COLONOSCOPY 07/23/2021 12:00 AM CDT from Last 3 Months or Most Recently Relevant to Health Maintenance Results * PSA DIAGNOSTIC,TOTAL (09/26/2022 9:36 AM AUTOMOBILE SE[employer] INST[employer]ER) PSA, TOTAL (PROSTATIC SPECIFIC ANTIGEN) 0.52 <=4.00 ng/mL 09/26/2022 2:40 PM [employer]OM[employer]BI[employer] INST[employer]ER [facility] Blood Venipuncture / Unknown 09/26/2022 9:36 AM AUTOMOBILE SE[employer] INST[employer]ER 09/26/2022 1:10 PM 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 us Estefany Fisher MD CHEMISTRY ORDERABLES Final Result Performing Organization Address City/[facility]/ZIP Co de Phone Number [facility] [address] [place] [address] * COLONOSCOPY (07/23/2021 12:00 AM CDT) 07/23/2021 us Not On File Provider PROCEDURE/MINOR SURGICAL OR DERABLES Final Result SCAN from Last 3 Months or Most Recently Relevant to Health Maintenance Insurance LOCATED WITHIN [facility]
[2025-01-28 09:53] VITALS: BP 108/70; PULSE 68; RESP 20; TEMP 36.1; O2SAT 99
[2025-01-28] MEDS: LACTATED RINGERS 1,000 ML 150 ML IV CONT (10:03)
--- NOTE | 2025-01-28 10:11 | P.PNAN_ITS ---
Anes - Initial Pre Proc Eval Procedure: Operation Date: 01/28/25 11:00 Proposed Procedures p Screening Colonoscopy - Bryn Huff MD Date/Time: 01/28/25 10:11 Surgeon: Bryn Huff MD Pre Op Diagnosis: screening colon Patient Data Age: 64 Gender: M Height: 1.7 m Weight: 92.5 kg Last Vital Signs Temp 36.1 C L 01/28/25 09:53 Pulse 68 01/28/25 09:53 Resp 20 01/28/25 09:53 BP 108/70 01/28/25 09:53 Pulse Ox 99 01/28/25 09:53 O2 Del Method Room Air 01/28/25 09:53 Allergies Allergy/AdvReac Type Severity Reaction Status Date / Time No Known Allergies Allergy Mild Verified 01/28/25 09:51 Home Medications ?Medication ?Instructions ?Recorded ?Confirmed ?Type aspirin 81 mg tablet,delayed 81 mg PO DAILY 09/16/19 01/28/25 History release (Adult Low Dose Aspirin) atorvastatin 80 mg tablet 80 mg PO DAILY 09/16/19 01/28/25 History dexmethylphenidate 10 mg tablet 10 mg PO DAILY 09/16/19 01/28/25 History escitalopram oxalate 20 mg tablet 40 mg PO DAILY 09/16/19 01/28/25 History lisinopril 5 mg tablet 2.5 mg PO DAILY 09/16/19 01/28/25 History metoprolol tartrate 25 mg tablet 12.5 mg PO BID 09/16/19 01/28/25 History qqkspfns-rfy-MD 200 mcg-vit K 100 1 cap PO DAILY 09/16/19 01/28/25 History mcg-lycop 500 [id number]-L12 capsule (Daily Multivitamin) nitroglycerin 0.4 mg sublingual 0.4 mg sublingual Q5M PRN Chest 09/16/19 01/23/25 History tablet (Nitrostat) Pain prasugrel HCl 10 mg tablet 10 mg PO DAILY 09/16/19 01/23/25 History (Effient) evolocumab 140 mg/mL subcutaneous mg subcut .2weeks 01/23/25 History pen injector (Repatha SureClick) Patient hx anesthesia problems: none Family hx anesthesia problems: none Results Review: All pre-operative results and documents have been reviewed as part of the pre- operative evaluation. [facility] Past Medical History Medical History Obesity Hyperlipidemia HTN (hypertension) CAD (coronary artery disease) Surgical History Surgical History History of coronary artery stent placement Social History Social History Smoking packs per day: 0.5 Smoking cigarettes per day: 10.0 Years smoked: 2 Smoking pack-years: 1.00 Smoking status: Former smoker Tobacco type: cigarettes Alcohol intake: current Drinks per week: 4 Alcohol use details: Beer or wine Substance use: never Substance use type: does not use Living arrangements: with family Spiritual care concerns: No Anes - Eval Final PreProcedure Day of Procedure 01/28/25 10:11 Patient weight: obese Heart: regular rate and rhythm Lungs: clear to auscultation Airway: Mallampati scale class II Neurological: alert and oriented Last oral intake: >/= 8 hours ASA classification: III Emergent: no Anesthetic plan: proceed Anesthesia type and monitoring: general GIVS and standard monitoring Results Review: All pre-operative results and documents have been reviewed as part of the pre- operative evaluation. Informed Consent: The patient's anesthetic plan and its attendant risks and benefits were discussed with the patient/family/POA. Questions were solicited and answers provided to the satisfaction of the patient/family/POA.
--- NOTE | 2025-01-28 10:24 | PM.HPGS ---
History of Present Illness History of Present Illness Consent: Risks, benefits, and alternatives have been discussed and questions answered. Patient agrees to proceed with procedure. Chief complaint: screening colon Narrative: Jaren Lane is a 64 year old male with colon polyp in 2020 Review of Systems Review of Systems: All systems reviewed & are unremarkable except as noted in HPI and below PMFSH Past Medical History Medical History (Updated 01/28/25 @ 10:25 by Bryn Huff MD) Colon polyp Obesity Hyperlipidemia HTN (hypertension) CAD (coronary artery disease) Surgical History Surgical History History of coronary artery stent placement Social History Social History Smoking packs per day: 0.5 Smoking cigarettes per day: 10.0 Years smoked: 2 Smoking pack-years: 1.00 Smoking status: Former smoker Tobacco type: cigarettes Alcohol intake: current Drinks per week: 4 Alcohol use details: Beer or wine Substance use: never Substance use type: does not use Living arrangements: with family Spiritual care concerns: No Meds Home Medications and Allergies Home Medications ?Medication ?Instructions ?Recorded ?Confirmed ?Type aspirin 81 mg tablet,delayed 81 mg PO DAILY 09/16/19 01/28/25 History release (Adult Low Dose Aspirin) atorvastatin 80 mg tablet 80 mg PO DAILY 09/16/19 01/28/25 History dexmethylphenidate 10 mg tablet 10 mg PO DAILY 09/16/19 01/28/25 History escitalopram oxalate 20 mg tablet 40 mg PO DAILY 09/16/19 01/28/25 History lisinopril 5 mg tablet 2.5 mg PO DAILY 09/16/19 01/28/25 History metoprolol tartrate 25 mg tablet 12.5 mg PO BID 09/16/19 01/28/25 History znitbfts-vwg-BZ 200 mcg-vit K 100 1 cap PO DAILY 09/16/19 01/28/25 History mcg-lycop 500 naj-qmbirp-N77 capsule (Daily Multivitamin) nitroglycerin 0.4 mg sublingual 0.4 mg sublingual Q5M PRN Chest 09/16/19 01/23/25 History tablet (Nitrostat) Pain prasugrel HCl 10 mg tablet 10 mg PO DAILY 09/16/19 01/23/25 History (Effient) evolocumab 140 mg/mL subcutaneous mg subcut .2weeks 01/23/25 History pen injector (Repatha SureClick) Allergies Allergy/AdvReac Type Severity Reaction Status Date / Time No Known Allergies Allergy Mild Verified 01/28/25 09:51 Vital Signs Vital Signs - 24 hr 01/28/25 09:53 Temperature 96.9 F L Pulse Rate 68 Respiratory Rate 20 Blood Pressure 108/70 Pulse Oximetry 99 Oxygen Delivery Room Air Exam Const: General: comfortable and no acute distress HENMT: Face/Nose/Sinus: Normal nares present Eyes: General: appearance normal, both eyes and all related structures Neck: Neck: no JVD Resp: Auscultation: clear to auscultation bilaterally Cardio: Rate: regular rate Rhythm: regular rhythm GI: Inspection: non-distended GI Palp: Yes Soft to palpation Skin: General skin exam: normal color Neuro: General: gait normal Speech: normal speech Extrem: General: normal to inspection Psych: Mental Status: mental status grossly normal Assessment and Plan Assessment and plan (1) Colon polyp: Code(s): K63.5 - Polyp of colon Status: Acute Assessment and Plan: colonoscopy
[2025-01-28 10:38] VITALS: BP 79/57; PULSE 59; RESP 19; O2SAT 94
[2025-01-28 10:48] VITALS: BP 96/64; PULSE 55; RESP 15; O2SAT 95
[2025-01-28 10:58] VITALS: BP 112/65; PULSE 57; RESP 19; O2SAT 96
== END 2025-01-28 11:24 | disposition home or self-care (01) ==
PROVIDERS: PCP Nurse Practitioner; Visit Provider Internal Medicine Gastroenterology
PROC: 0DJD8ZZ Inspection of Lower Intestinal Tract, Via Natural or Artificial Opening Endoscopic (ICD-10-PCS; CPT 45378; principal; 2025-01-28 11:00)
DX: Z12.11 Encounter for screening for malignant neoplasm of colon (principal); D12.3 Benign neoplasm of transverse colon; K63.5 Polyp of colon; K57.30 Diverticulosis of large intestine without perforation or abscess without bleeding; K64.8 Other hemorrhoids; Z87.891 Personal history of nicotine dependence; E66.9 Obesity, unspecified; Z68.31 Body mass index [BMI] 31.0-31.9, adult
CPT/HCPCS: 45385; 88305; J2704; J7120